=== PATIENT | male | born 1965 | race Caucasian/White ===

== ENCOUNTER 2016-11-27 23:56 | Emergency (ER) | payer OTHER ==
[~2016-11-27] VITALS: Ht 180.3 cm; Wt 95.9 kg
[~2016-11-27 23:56] MED LIST: ADVIL,NUPRIN,M200 MG PO; AMBIEN10 MG PO; AZITHROMYCIN250 MG1 PO; BACLOFEN20 MG PO; CLORAZEPATE DI7.5 MG PO; COLACE100 MG PO; DOXYCYCLINE HY100 M3 PO; Desyrel PO; LITHIUM; LITHIUM CARBON300 M1 PO; LITHIUM CARBON300 MG PO; LYRICA50 MG PO; Lithium Carbonate PO; Medrol Dosepak PO; NAPROSYN500 MG PO; OXYCODONE HCL30 MG PO; OXYCODONE-APAP1 EACH PO; PERCOCET 10/1 TABLET PO; Percocet 5/325,Endoc PO; Proventil,Ventolin H IH; REQUIP0.5 MG PO; REQUIP1 MG PO; Requip PO; SEROQUEL400 MG PO; STRATTERA60 MG PO; TOPAMAX100 MG PO; TOPAMAX200 MG PO; TOPIRAMATE100 MG PO; VALIUM10 MG PO; ZITHROMAX Z-PA250 MG PO; ZOLPIDEM TARTRAT5 MG PO
[2016-11-28 02:54] LABS: EOSINOPHIL (%) 0.5 % (0-5); EOSINOPHIL COUNT 0.1 K/uL (0-0.3); HEMATOCRIT 38.8 % (38.0-50.0); IMMATURE GRANULOCYTE (%) 0.4 % (0.0-0.7); IMMATURE GRANULOCYTE COUNT 0.1 K/uL; LYMPHOCYTE COUNT 1.9 K/uL (1.0-2.8); MCH 25.9 PG (29.0-34.0); MCV 81.2 FL (86-99); MEAN PLAT.VOLUME 10.2 uM^3 (9.0-12.4); MONOCYTE (%) 6.2 % (3-12); MONOCYTE COUNT 0.9 K/uL (0-0.8); NEUTROPHIL (%) 78.9 % (45-76); PLATELET COUNT 217 K/uL (156-360); RBC DIS.WIDTH-CV 18.4 % (11.8-14.6); RED BLOOD COUNT 4.78 M/uL (4.00-5.50); WHITE BLOOD COUNT 13.9 K/uL (4.1-10.2)
[2016-11-28 03:07] LABS: CHLORIDE 107 mEq/L (99-109); SODIUM 143 mEq/L (136-147)
[2016-11-28 03:10] LABS: GLUCOSE 124 mg/dL (70-99)
[2016-11-28 03:11] LABS: ANION GAP 6 MEQ/L (2-14); TOTAL BILIRUBIN 0.3 mg/dL (0.0-1.0)
[2016-11-28 03:12] LABS: SERUM ETHYL ALCOHOL < 10 mg/dL
[2016-11-28 03:13] LABS: ALKALINE PHOSPHATASE 100 IU/L (3-129); GFR ESTIMATE (CALCULATED) > 59 mL/min/
[2016-11-28 03:14] LABS: UREA NITROGEN (BUN) 27 mg/dL (9-23)
[2016-11-28 03:16] LABS: TROP-I INTERPRETATION NEGATIVE; TROPONIN-I < 0.01 ng/mL (0.0-0.30)
[2016-11-28 03:17] LABS: LIPASE 81 U/L (1.0-51.0)
[2016-11-28] MEDS ORDERED: ZOFRAN4 MG PO (05:07)
[2016-11-28 05:24] VITALS: BP 131/80
== END 2016-11-28 05:26 | disposition home or self-care (01) ==
LOC: EME 23:56
PROVIDERS: Emergency Medicine
DX: R10.9 Unspecified abdominal pain (principal); R11.2 Nausea with vomiting, unspecified; R20.2 Paresthesia of skin; R42 Dizziness and giddiness; F31.9 Bipolar disorder, unspecified; F41.9 Anxiety disorder, unspecified; F11.20 Opioid dependence, uncomplicated; F13.20 Sedative, hypnotic or anxiolytic dependence, uncomplicated; F10.10 Alcohol abuse, uncomplicated; F17.200 Nicotine dependence, unspecified, uncomplicated
CPT/HCPCS: 70450; 71010; 74176; 80053; 83690; 84484; 85025; 93005; 99281; 99284; G0480; J2405; J7030

== ENCOUNTER 2016-12-02 02:09 | Inpatient (IN) | payer OTHER ==
[~2016-12-02] VITALS: Ht 180.3 cm; Wt 97.0 kg
[~2016-12-02 02:09] MED LIST changes: +ZOFRAN4 MG PO
[2016-12-02 02:57] LABS: HEMATOCRIT 39.9 % (38.0-50.0); MCH 25.9 PG (29.0-34.0); MCHC 31.8 G/DL (30.0-36.0); MCV 81.4 FL (86-99); MEAN PLAT.VOLUME 10.8 uM^3 (9.0-12.4); PLATELET COUNT 218 K/uL (156-360); RBC DIS.WIDTH-CV 18.6 % (11.8-14.6); RBC DIS.WIDTH-SD 53.8 % (39-53); WHITE BLOOD COUNT 18.2 K/uL (4.1-10.2)
[2016-12-02 02:59] LABS: CHLORIDE 107 mEq/L (99-109); SODIUM 138 mEq/L (136-147)
[2016-12-02 03:00] LABS: GLUCOSE 107 mg/dL (70-99)
[2016-12-02 03:02] LABS: ANION GAP 7 MEQ/L (2-14)
[2016-12-02 03:04] LABS: GFR ESTIMATE (CALCULATED) > 59 mL/min/
[2016-12-02 03:06] LABS: UREA NITROGEN (BUN) 24 mg/dL (9-23)
[2016-12-02 03:07] LABS: SALICYLATE < 5.0 MG/DL (15-30)
[2016-12-02 07:50] VITALS: BP 137/73
[2016-12-02 11:15] VITALS: BP 132/74
[2016-12-02] MEDS ORDERED: LYRICA150 MG PO (12:20)
[2016-12-02] MEDS ORDERED: LITHIUM CARBON300 MG PO (12:23)
[2016-12-02 12:25] LABS: HEMATOCRIT 41.9 % (38.0-50.0); MCH 26.4 PG (29.0-34.0); MCV 82.5 FL (86-99); MEAN PLAT.VOLUME 10.3 uM^3 (9.0-12.4); PLATELET COUNT 195 K/uL (156-360); RBC DIS.WIDTH-SD 54.3 % (39-53); RED BLOOD COUNT 5.08 M/uL (4.00-5.50); WHITE BLOOD COUNT 20.5 K/uL (4.1-10.2)
[2016-12-02] MEDS ORDERED: TOPIRAMATE100 MG PO (12:25)
[2016-12-02 12:51] LABS: ANION GAP 10 MEQ/L (2-14); CHLORIDE 113 MEQ/L (99-109); CREATINE KINASE 781 IU/L (1-294); GFR ESTIMATE (CALCULATED) > 59 mL/min/; GLUCOSE 90 mg/dL (70-99); POTASSIUM 3.7 MEQ/L (3.7-5.4); SAMPLE HEMOLYSIS CHECK 0; SAMPLE ICTERIC CHECK 0; SAMPLE LIPEMIA CHECK 0; SODIUM 144 MEQ/L (136-147); UREA NITROGEN (BUN) 15 mg/dL (9-23)
[2016-12-02 15:48] VITALS: BP 174/81
[2016-12-02 19:54] VITALS: BP 160/74
[2016-12-02 23:59] VITALS: BP 139/76
[2016-12-03 07:43] LABS: MCH 26.2 PG (29.0-34.0); MCHC 31.7 G/DL (30.0-36.0); MCV 82.7 FL (86-99); MEAN PLAT.VOLUME 11.1 uM^3 (9.0-12.4); PLATELET COUNT 202 K/uL (156-360); RBC DIS.WIDTH-CV 18.9 % (11.8-14.6); RED BLOOD COUNT 4.96 M/uL (4.00-5.50); WHITE BLOOD COUNT 12.3 K/uL (4.1-10.2)
[2016-12-03 07:52] LABS: ANION GAP 6 MEQ/L (2-14); CHLORIDE 112 MEQ/L (99-109); GFR ESTIMATE (CALCULATED) > 59 mL/min/; GLUCOSE 88 mg/dL (70-99); POTASSIUM 4.2 MEQ/L (3.7-5.4); SAMPLE HEMOLYSIS CHECK 0; SAMPLE ICTERIC CHECK 0; SAMPLE LIPEMIA CHECK 0; SODIUM 143 MEQ/L (136-147); UREA NITROGEN (BUN) 13 mg/dL (9-23)
[2016-12-03 08:03] LABS: CREATINE KINASE 722 IU/L (1-294)
[2016-12-03] MEDS ORDERED: BACLOFEN20 MG PO ×2 (13:41→13:49)
[2016-12-03] MEDS ORDERED: TYLENOL EXTRA500 MG PO (13:42)
[2016-12-03] MEDS ORDERED: BUSPIRONE HCL10 MG PO (13:43)
[2016-12-03] MEDS ORDERED: SERTRALINE HCL100 MG PO (13:44)
[2016-12-03] MEDS ORDERED: OXCARBAZEPINE600 MG PO (13:45)
[2016-12-03] MEDS ORDERED: NAPROXEN500 MG PO (13:46)
[2016-12-03] MEDS ORDERED: PROAIR HFA8.5 GM IH (13:48)
[2016-12-03] MEDS ORDERED: ADVIL200 MG PO (13:51)
[2016-12-03 23:28] VITALS: BP 154/67
[2016-12-04 05:23] LABS: HEMATOCRIT 40.9 % (38.0-50.0); MCH 25.9 PG (29.0-34.0); MCHC 31.8 G/DL (30.0-36.0); MCV 81.6 FL (86-99); PLATELET COUNT 202 K/uL (156-360); RBC DIS.WIDTH-CV 18.5 % (11.8-14.6); RBC DIS.WIDTH-SD 52.3 % (39-53); RED BLOOD COUNT 5.01 M/uL (4.00-5.50); WHITE BLOOD COUNT 13.4 K/uL (4.1-10.2)
[2016-12-04 05:49] LABS: ANION GAP 10 MEQ/L (2-14); CHLORIDE 108 MEQ/L (99-109); CREATINE KINASE 354 IU/L (1-294); GFR ESTIMATE (CALCULATED) > 59 mL/min/; GLUCOSE 101 mg/dL (70-99); POTASSIUM 3.7 MEQ/L (3.7-5.4); SAMPLE HEMOLYSIS CHECK 0; SAMPLE ICTERIC CHECK 0; SAMPLE LIPEMIA CHECK 0; SODIUM 141 MEQ/L (136-147); UREA NITROGEN (BUN) 10 mg/dL (9-23)
[2016-12-04 08:04] VITALS: BP 127/75
[2016-12-04] MEDS ORDERED: NICOTINE PATCH1 EAC2 TD (16:28)
== END 2016-12-04 16:48 | disposition home or self-care (01) | DRG 917 ==
LOC: EME 02:09 → 5SOUTH 04:56 → EDOF 04:56 → 5SOUTH 06:17
PROVIDERS: Emergency Medicine; Hospitalist; Internal Medicine
DX: T42.8X2A Poisoning by antiparkinsonism drugs and other central muscle-tone depressants, intentional self-harm, initial encounter (principal); R40.20 Unspecified coma; G92 Toxic encephalopathy; R45.851 Suicidal ideations; F33.2 Major depressive disorder, recurrent severe without psychotic features; F05 Delirium due to known physiological condition; E87.2 Acidosis; T42.6X2A Poisoning by other antiepileptic and sedative-hypnotic drugs, intentional self-harm, initial encounter; J44.9 Chronic obstructive pulmonary disease, unspecified; G89.29 Other chronic pain; F10.129 Alcohol abuse with intoxication, unspecified; F17.210 Nicotine dependence, cigarettes, uncomplicated; G47.00 Insomnia, unspecified; R45.89 Other symptoms and signs involving emotional state; R45.1 Restlessness and agitation; E66.9 Obesity, unspecified; Z91.14 Patient's other noncompliance with medication regimen; Z81.8 Family history of other mental and behavioral disorders; Z68.29 Body mass index [BMI] 29.0-29.9, adult; Y92.009 Unspecified place in unspecified non-institutional (private) residence as the place of occurrence of the external cause
CPT/HCPCS: 80048; 80048 91; 82550; 83605; 85027; 93005; 99281; 99285; G0480; J1630; J1650; J2060; J7030

== ENCOUNTER 2017-02-16 17:22 | Emergency (ER) | payer OTHER ==
[~2017-02-16] VITALS: Ht 182.9 cm; Wt 88.8 kg
[~2017-02-16 17:22] MED LIST changes: +ADVIL200 MG PO; +BUSPIRONE HCL10 MG PO; +LYRICA150 MG PO; +NAPROXEN500 MG PO; +NICOTINE PATCH1 EAC2 TD; +OXCARBAZEPINE600 MG PO; +PROAIR HFA8.5 GM IH; +SERTRALINE HCL100 MG PO; +TYLENOL EXTRA500 MG PO
[2017-02-16 18:07] LABS: EOSINOPHIL (%) 1.8 % (0-5); EOSINOPHIL COUNT 0.2 K/uL (0-0.3); HEMATOCRIT 45.7 % (38.0-50.0); IMMATURE GRANULOCYTE (%) 0.2 % (0.0-0.7); INSTRUMENT ABS NEUTROPHIL CT 9.1 K/uL; MCH 27.7 PG (29.0-34.0); MCHC 32.8 G/DL (30.0-36.0); MCV 84.5 FL (86-99); MONOCYTE (%) 7.5 % (3-12); MONOCYTE COUNT 0.9 K/uL (0-0.8); NEUTROPHIL (%) 73.8 % (45-76); NEUTROPHIL COUNT 9.1 K/uL (1.8-6.4); PLATELET COUNT 203 K/uL (156-360); RBC DIS.WIDTH-CV 17.9 % (11.8-14.6); RBC DIS.WIDTH-SD 55.3 % (39-53); RED BLOOD COUNT 5.41 M/uL (4.00-5.50); WHITE BLOOD COUNT 12.3 K/uL (4.1-10.2)
[2017-02-16 18:16] LABS: CHLORIDE 106 mEq/L (99-109); SODIUM 142 mEq/L (136-147)
[2017-02-16 18:18] LABS: GLUCOSE 118 mg/dL (70-99)
[2017-02-16 18:19] LABS: ANION GAP 10 MEQ/L (2-14)
[2017-02-16 18:21] LABS: SERUM ETHYL ALCOHOL < 10 mg/dL
[2017-02-16 18:22] LABS: GFR ESTIMATE (CALCULATED) > 59 mL/min/
[2017-02-16 18:23] LABS: UREA NITROGEN (BUN) 9 mg/dL (9-23)
[2017-02-16 18:25] LABS: SALICYLATE < 5.0 MG/DL (15-30)
[2017-02-16 18:52] LABS: AMPHETAMINE NEGATIVE (500 ng/mL); BARBITURATES NEGATIVE (200 ng/mL); BENZODIAZEPINES NEGATIVE (150 ng/mL); COCAINE NEGATIVE (150 ng/mL); INTERNAL CONTROLS VALID? YES; METHADONE NEGATIVE (200 ng/mL); METHAMPHETAMINE NEGATIVE (500 ng/mL); OPIATES (MORPHINE) NEGATIVE (100 ng/mL); OXYCODONE NEGATIVE (100 ng/mL); PHENCYCLIDINE NEGATIVE (25 ng/mL); PROPOXYPHENE NEGATIVE (300 ng/mL); THC CANNABINOIDS NEGATIVE (50 ng/mL); TRICYCLIC ANTIDEPRESSANTS NEGATIVE (300 ng/mL)
[2017-02-17 05:29] VITALS: BP 113/86
== END 2017-02-17 05:48 | disposition home or self-care (01) ==
LOC: EME 17:22
PROVIDERS: Emergency Medicine
DX: T50.901A Poisoning by unspecified drugs, medicaments and biological substances, accidental (unintentional), initial encounter (principal); F17.200 Nicotine dependence, unspecified, uncomplicated
CPT/HCPCS: 70450; 80048; 83930; 85025; 99281; 99285; G0480; J1630

== ENCOUNTER 2017-02-18 01:53 | Emergency (ER) | payer OTHER ==
[~2017-02-18] VITALS: Ht 182.9 cm; Wt 93.9 kg
[2017-02-18 02:49] LABS: MCH 27.9 PG (29.0-34.0); MCHC 32.7 G/DL (30.0-36.0); MCV 85.4 FL (86-99); MEAN PLAT.VOLUME 11.1 uM^3 (9.0-12.4); PLATELET COUNT 193 K/uL (156-360); RBC DIS.WIDTH-CV 17.6 % (11.8-14.6); RBC DIS.WIDTH-SD 54.9 % (39-53); RED BLOOD COUNT 5.27 M/uL (4.00-5.50); WHITE BLOOD COUNT 13.8 K/uL (4.1-10.2)
[2017-02-18 03:01] LABS: CHLORIDE 107 mEq/L (99-109); SODIUM 141 mEq/L (136-147)
[2017-02-18 03:03] LABS: GLUCOSE 101 mg/dL (70-99)
[2017-02-18 03:04] LABS: ANION GAP 9 MEQ/L (2-14)
[2017-02-18 03:05] LABS: TOTAL BILIRUBIN 0.2 mg/dL (0.0-1.0)
[2017-02-18 03:06] LABS: SERUM ETHYL ALCOHOL < 10 mg/dL
[2017-02-18 03:07] LABS: GFR ESTIMATE (CALCULATED) > 59 mL/min/
[2017-02-18 03:08] LABS: ALKALINE PHOSPHATASE 107 IU/L (3-129)
[2017-02-18 03:09] LABS: UREA NITROGEN (BUN) 14 mg/dL (9-23)
[2017-02-18 03:10] LABS: SALICYLATE < 5.0 MG/DL (15-30)
[2017-02-18 03:12] LABS: LIPASE 107 U/L (1.0-51.0)
[2017-02-18 04:17] LABS: AMPHETAMINE NEGATIVE (500 ng/mL); BARBITURATES NEGATIVE (200 ng/mL); BENZODIAZEPINES NEGATIVE (150 ng/mL); COCAINE NEGATIVE (150 ng/mL); INTERNAL CONTROLS VALID? YES; METHADONE NEGATIVE (200 ng/mL); METHAMPHETAMINE NEGATIVE (500 ng/mL); OPIATES (MORPHINE) NEGATIVE (100 ng/mL); OXYCODONE NEGATIVE (100 ng/mL); PHENCYCLIDINE NEGATIVE (25 ng/mL); PROPOXYPHENE NEGATIVE (300 ng/mL); THC CANNABINOIDS NEGATIVE (50 ng/mL); TRICYCLIC ANTIDEPRESSANTS NEGATIVE (300 ng/mL)
[2017-02-18 06:28] LABS: CREATINE KINASE 403 IU/L (1-294)
[2017-02-18 14:18] VITALS: BP 121/89
== END 2017-02-18 14:18 | disposition home or self-care (01) ==
LOC: EME → EDBD 01:53 → EME 01:53
PROVIDERS: Emergency Medicine
DX: T50.902A Poisoning by unspecified drugs, medicaments and biological substances, intentional self-harm, initial encounter (principal); F19.121 Other psychoactive substance abuse with intoxication delirium; F17.200 Nicotine dependence, unspecified, uncomplicated
CPT/HCPCS: 71010; 80053; 82550; 83690; 85027; 93005; 99281; 99285; G0480; J1630; J2060; J2250; J7030

== ENCOUNTER 2017-02-19 07:02 | Emergency (ER) | payer OTHER ==
[~2017-02-19] VITALS: Ht 175.3 cm; Wt 83.4 kg
[2017-02-19 07:35] LABS: EOSINOPHIL COUNT 0.1 K/uL (0-0.3); IMMATURE GRANULOCYTE (%) 0.2 % (0.0-0.7); INSTRUMENT ABS NEUTROPHIL CT 7.5 K/uL; LYMPHOCYTE COUNT 2.5 K/uL (1.0-2.8); MCH 27.5 PG (29.0-34.0); MCHC 32.2 G/DL (30.0-36.0); MCV 85.3 FL (86-99); MEAN PLAT.VOLUME 10.3 uM^3 (9.0-12.4); MONOCYTE (%) 8.2 % (3-12); MONOCYTE COUNT 0.9 K/uL (0-0.8); NEUTROPHIL (%) 67.8 % (45-76); NEUTROPHIL COUNT 7.5 K/uL (1.8-6.4); PLATELET COUNT 188 K/uL (156-360); RBC DIS.WIDTH-CV 18.4 % (11.8-14.6); RBC DIS.WIDTH-SD 55.4 % (39-53); RED BLOOD COUNT 5.86 M/uL (4.00-5.50); WHITE BLOOD COUNT 11.1 K/uL (4.1-10.2)
[2017-02-19 08:12] LABS: ANION GAP 11 MEQ/L (2-14); CHLORIDE 111 MEQ/L (99-109); DIRECT BILIRUBIN 0.1 mg/dL (0.0-0.3); SAMPLE HEMOLYSIS CHECK 0; SAMPLE ICTERIC CHECK 0; SAMPLE LIPEMIA CHECK 0; SODIUM 147 MEQ/L (136-147); TOTAL BILIRUBIN 0.6 MG/DL (0.0-1.0)
[2017-02-19 08:21] LABS: ALKALINE PHOSPHATASE 108 IU/L (3-129); GFR ESTIMATE (CALCULATED) > 59 mL/min/; GLUCOSE 119 mg/dL (70-99); SALICYLATE < 3.0 MG/DL (15-30); SERUM ETHYL ALCOHOL < 10 mg/dL; UREA NITROGEN (BUN) 17 mg/dL (9-23)
[2017-02-19 08:22] LABS: TROP-I INTERPRETATION NEGATIVE; TROPONIN-I < 0.01 ng/mL (0.0-0.30)
[2017-02-19 10:38] VITALS: BP 118/63
== END 2017-02-19 16:09 | disposition home or self-care (01) ==
LOC: EME → EDBD 07:02 → EME 07:02
PROVIDERS: Emergency Medicine
DX: F10.129 Alcohol abuse with intoxication, unspecified (principal); R41.82 Altered mental status, unspecified; F17.200 Nicotine dependence, unspecified, uncomplicated; Z86.718 Personal history of other venous thrombosis and embolism
CPT/HCPCS: 70450; 80048; 80076; 81003; 84484; 85025; 93005; 99281; 99285; G0480; J1630; J2250

== ENCOUNTER 2017-02-20 13:32 | Emergency (ER) | payer OTHER ==
[~2017-02-20] VITALS: Ht 172.7 cm; Wt 86.5 kg
[2017-02-20 15:12] LABS: EOSINOPHIL (%) 0.6 % (0-5); EOSINOPHIL COUNT 0.1 K/uL (0-0.3); HEMATOCRIT 43.8 % (38.0-50.0); IMMATURE GRANULOCYTE (%) 0.4 % (0.0-0.7); IMMATURE GRANULOCYTE COUNT 0.1 K/uL; INSTRUMENT ABS NEUTROPHIL CT 10.3 K/uL; LYMPHOCYTE COUNT 1.8 K/uL (1.0-2.8); MCH 27.5 PG (29.0-34.0); MCHC 32.4 G/DL (30.0-36.0); MCV 84.7 FL (86-99); MEAN PLAT.VOLUME 10.4 uM^3 (9.0-12.4); MONOCYTE (%) 8.9 % (3-12); MONOCYTE COUNT 1.2 K/uL (0-0.8); NEUTROPHIL (%) 76.5 % (45-76); NEUTROPHIL COUNT 10.3 K/uL (1.8-6.4); PLATELET COUNT 179 K/uL (156-360); RBC DIS.WIDTH-CV 17.2 % (11.8-14.6); RBC DIS.WIDTH-SD 53.8 % (39-53); RED BLOOD COUNT 5.17 M/uL (4.00-5.50); WHITE BLOOD COUNT 13.4 K/uL (4.1-10.2)
[2017-02-20 15:20] LABS: CHLORIDE 108 mEq/L (99-109)
[2017-02-20 15:21] LABS: POTASSIUM 3.7 mEq/L (3.7-5.4); SODIUM 143 mEq/L (136-147)
[2017-02-20 15:22] LABS: GLUCOSE 94 mg/dL (70-99)
[2017-02-20 15:24] LABS: ANION GAP 14 MEQ/L (2-14)
[2017-02-20 15:25] LABS: SERUM ETHYL ALCOHOL < 10 mg/dL
[2017-02-20 15:26] LABS: GFR ESTIMATE (CALCULATED) > 59 mL/min/
[2017-02-20 15:27] LABS: UREA NITROGEN (BUN) 23 mg/dL (9-23)
[2017-02-20 19:21] LABS: ADD MIUA? YES; BILIRUBIN NEGATIVE; BLOOD MODERATE; COLOR YELLOW ((YELLOW)); GLUCOSE (STRIP) NEGATIVE; KETONES 20; LEUKOCYTES NEGATIVE; NITRITE NEGATIVE; PROTEIN (STRIP) 30; SPECIFIC GRAVITY 1.025 (1.000-1.030)
[2017-02-20 19:36] LABS: ADD MEDTOX COMMENT Y; AMPHETAMINE NEGATIVE (500 ng/mL); BARBITURATES NEGATIVE (200 ng/mL); BENZODIAZEPINES PRESUMPTIVE POSITIVE (150 ng/mL); COCAINE NEGATIVE (150 ng/mL); INTERNAL CONTROLS VALID? YES; METHADONE NEGATIVE (200 ng/mL); METHAMPHETAMINE NEGATIVE (500 ng/mL); OPIATES (MORPHINE) NEGATIVE (100 ng/mL); OXYCODONE NEGATIVE (100 ng/mL); PHENCYCLIDINE NEGATIVE (25 ng/mL); PROPOXYPHENE NEGATIVE (300 ng/mL); THC CANNABINOIDS NEGATIVE (50 ng/mL); TRICYCLIC ANTIDEPRESSANTS NEGATIVE (300 ng/mL)
[2017-02-20 19:38] LABS: BACTERIA NONE SEEN /HPF; EPITHELIAL CELLS RARE /HPF; MUCUS TRACE /LPF; RED BLOOD CELLS 15-20 /HPF (0-5); WHITE BLOOD CELLS 0-5 /HPF (0-5)
[2017-02-20 20:02] LABS: BENZODIAZEPINES, URINE SCREEN POSITIVE (200 ng/mL)
[2017-02-21 04:48] VITALS: BP 126/71
[2017-02-22] MEDS ORDERED: LYRICA150 MG PO ×2 (01:21→01:22)
[2017-02-22] MEDS ORDERED: KLONOPIN1 MG PO (01:23)
[2017-02-22] MEDS ORDERED: BACLOFEN20 MG PO (01:25)
== END 2017-02-21 04:50 | disposition home or self-care (01) ==
LOC: EME 13:32
PROVIDERS: Emergency Medicine
DX: T40.7X1A Poisoning by cannabis (derivatives), accidental (unintentional), initial encounter (principal); F12.10 Cannabis abuse, uncomplicated; Z91.19 Patient's noncompliance with other medical treatment and regimen; F17.200 Nicotine dependence, unspecified, uncomplicated
CPT/HCPCS: 70450; 80048; 81003; 84999; 85025; 90839; 99281; 99285; G0480

== ENCOUNTER 2017-02-21 16:17 | Inpatient (IN) | payer OTHER ==
[~2017-02-21] VITALS: Ht 180.3 cm; Wt 90.8 kg
[2017-02-21 17:44] LABS: BASOPHIL COUNT 0.1 K/uL (0-0.1); EOSINOPHIL (%) 1.9 % (0-5); EOSINOPHIL COUNT 0.2 K/uL (0-0.3); HEMATOCRIT 41.9 % (38.0-50.0); IMMATURE GRANULOCYTE (%) 0.6 % (0.0-0.7); IMMATURE GRANULOCYTE COUNT 0.1 K/uL; INSTRUMENT ABS NEUTROPHIL CT 7.4 K/uL; LYMPHOCYTE COUNT 2.9 K/uL (1.0-2.8); MCH 27.7 PG (29.0-34.0); MCHC 33.2 G/DL (30.0-36.0); MCV 83.6 FL (86-99); MEAN PLAT.VOLUME 10.9 uM^3 (9.0-12.4); MONOCYTE (%) 8.9 % (3-12); MONOCYTE COUNT 1.1 K/uL (0-0.8); NEUTROPHIL (%) 63.1 % (45-76); NEUTROPHIL COUNT 7.4 K/uL (1.8-6.4); PLATELET COUNT 189 K/uL (156-360); RBC DIS.WIDTH-CV 16.9 % (11.8-14.6); RBC DIS.WIDTH-SD 51.6 % (39-53); RED BLOOD COUNT 5.01 M/uL (4.00-5.50); WHITE BLOOD COUNT 11.7 K/uL (4.1-10.2)
[2017-02-21 17:51] LABS: CHLORIDE 107 mEq/L (99-109); POTASSIUM 3.5 mEq/L (3.7-5.4); SODIUM 140 mEq/L (136-147)
[2017-02-21 17:53] LABS: GLUCOSE 104 mg/dL (70-99)
[2017-02-21 17:54] LABS: ANION GAP 12 MEQ/L (2-14)
[2017-02-21 17:56] LABS: GFR ESTIMATE (CALCULATED) > 59 mL/min/; SERUM ETHYL ALCOHOL < 10 mg/dL
[2017-02-21 17:57] LABS: UREA NITROGEN (BUN) 18 mg/dL (9-23)
[2017-02-21 19:38] LABS: ADD MIUA? NO; BILIRUBIN NEGATIVE; BLOOD NEGATIVE; COLOR YELLOW ((YELLOW)); GLUCOSE (STRIP) NEGATIVE; KETONES NEGATIVE; LEUKOCYTES NEGATIVE; NITRITE NEGATIVE; PROTEIN (STRIP) NEGATIVE; SPECIFIC GRAVITY 1.012 (1.000-1.030); UROBILINOGEN 0.2 MG/DL (0.2-1.0)
[2017-02-21 20:03] LABS: AMPHETAMINE NEGATIVE (500 ng/mL); BARBITURATES NEGATIVE (200 ng/mL); BENZODIAZEPINES NEGATIVE (150 ng/mL); COCAINE NEGATIVE (150 ng/mL); INTERNAL CONTROLS VALID? YES; METHADONE NEGATIVE (200 ng/mL); METHAMPHETAMINE NEGATIVE (500 ng/mL); OPIATES (MORPHINE) NEGATIVE (100 ng/mL); OXYCODONE NEGATIVE (100 ng/mL); PHENCYCLIDINE NEGATIVE (25 ng/mL); PROPOXYPHENE NEGATIVE (300 ng/mL); THC CANNABINOIDS NEGATIVE (50 ng/mL); TRICYCLIC ANTIDEPRESSANTS NEGATIVE (300 ng/mL)
[2017-02-22 00:01] VITALS: BP 121/74
[2017-02-22] MEDS ORDERED: LYRICA150 MG PO ×2 (01:21→01:22)
[2017-02-22] MEDS ORDERED: KLONOPIN1 MG PO (01:23)
[2017-02-22] MEDS ORDERED: BACLOFEN20 MG PO (01:25)
[2017-02-22 07:48] VITALS: BP 100/59
[2017-02-22 15:23] VITALS: BP 111/77
[2017-02-23 07:48] VITALS: BP 116/71
[2017-02-23] MEDS ORDERED: OXCARBAZEPINE300 MG PO (09:23)
[2017-02-23] MEDS ORDERED: LYRICA75 MG PO (09:23)
== END 2017-02-23 12:43 | disposition home or self-care (01) | DRG 885 ==
LOC: EME 16:17 → EDOF 19:28 → 1WEST 19:28 → ENRESERV 23:27 → 1WEST 23:50
PROVIDERS: Emergency Medicine
DX: F31.81 Bipolar II disorder (principal); F17.200 Nicotine dependence, unspecified, uncomplicated; F41.1 Generalized anxiety disorder; G89.29 Other chronic pain; J44.9 Chronic obstructive pulmonary disease, unspecified; F14.10 Cocaine abuse, uncomplicated; F12.10 Cannabis abuse, uncomplicated; F11.10 Opioid abuse, uncomplicated; F10.10 Alcohol abuse, uncomplicated; Z91.5 Personal history of self-harm
CPT/HCPCS: 80048; 81003; 85025; 90839; 99281; 99285; G0480

== ENCOUNTER 2017-11-03 13:29 | Emergency (ER) | payer OTHER ==
[~2017-11-03] VITALS: Ht 180.3 cm; Wt 92.3 kg
[~2017-11-03 13:29] MED LIST changes: +KLONOPIN1 MG PO; +LYRICA75 MG PO; +OXCARBAZEPINE300 MG PO
[2017-11-03 13:56] LABS: HEMATOCRIT 44.1 % (38.0-50.0); HEMOGLOBIN 15.1 G/DL (12.5-16.6); MCH 30.5 PG (29.0-34.0); MCHC 34.2 G/DL (30.0-36.0); MCV 89.1 FL (86-99); PLATELET COUNT 160 K/uL (156-360); RBC DIS.WIDTH-CV 15.3 % (11.8-14.6); RBC DIS.WIDTH-SD 49.8 % (39-53); RED BLOOD COUNT 4.95 M/uL (4.00-5.50); WHITE BLOOD COUNT 10.5 K/uL (4.1-10.2)
[2017-11-03 14:08] LABS: CHLORIDE 108 mEq/L (99-109); POTASSIUM 3.8 mEq/L (3.7-5.4); SODIUM 143 mEq/L (136-147)
[2017-11-03 14:10] LABS: GLUCOSE 114 mg/dL (70-99)
[2017-11-03 14:14] LABS: CREATININE 0.8 mg/dL (0.6-1.3); GFR ESTIMATE (CALCULATED) > 59 mL/min/ (58.99-99999)
[2017-11-03 14:15] LABS: UREA NITROGEN (BUN) 10 mg/dL (9-23)
[2017-11-03] MEDS ORDERED: PREDNISONE20 MG PO (16:25)
[2017-11-03] MEDS ORDERED: ZITHROMAX250 MG PO (16:31)
[2017-11-03 16:37] VITALS: BP 113/85
== END 2017-11-03 16:38 | disposition home or self-care (01) ==
LOC: EME 13:29
PROVIDERS: Emergency Medicine
DX: J18.9 Pneumonia, unspecified organism (principal); J44.0 Chronic obstructive pulmonary disease with (acute) lower respiratory infection; J44.1 Chronic obstructive pulmonary disease with (acute) exacerbation; F41.9 Anxiety disorder, unspecified; F17.210 Nicotine dependence, cigarettes, uncomplicated
CPT/HCPCS: 71046; 80048; 85027; 87502; 94640; 99281; 99285; J7030; J7512

== ENCOUNTER 2017-12-02 01:06 | Inpatient (IN) | payer OTHER ==
[~2017-12-02] VITALS: Ht 180.3 cm; Wt 95.6 kg
[~2017-12-02 01:06] MED LIST changes: +BUSPAR15 MG PO; -BUSPIRONE HCL10 MG PO; +PREDNISONE20 MG PO; +SEROQUEL200 MG PO; -SEROQUEL400 MG PO; -SERTRALINE HCL100 MG PO; +ZITHROMAX250 MG PO; +ZOLOFT50 MG PO
[2017-12-02 01:57] LABS: HEMATOCRIT 45.8 % (38.0-50.0); HEMOGLOBIN 15.3 G/DL (12.5-16.6); MCH 30.6 PG (29.0-34.0); MCHC 33.4 G/DL (30.0-36.0); MCV 91.6 FL (86-99); PLATELET COUNT 206 K/uL (156-360); RBC DIS.WIDTH-CV 15.3 % (11.8-14.6); RBC DIS.WIDTH-SD 51.1 % (39-53); WHITE BLOOD COUNT 26.7 K/uL (4.1-10.2)
[2017-12-02 02:13] LABS: AMPHETAMINE NEGATIVE (500 ng/mL); BARBITURATES NEGATIVE (200 ng/mL); BENZODIAZEPINES NEGATIVE (150 ng/mL); BUPRENORPHINE NEGATIVE (10 ng/mL); COCAINE NEGATIVE (150 ng/mL); METHADONE NEGATIVE (200 ng/mL); METHAMPHETAMINE NEGATIVE (500 ng/mL); OPIATES (MORPHINE) NEGATIVE (100 ng/mL); OXYCODONE NEGATIVE (100 ng/mL); PHENCYCLIDINE NEGATIVE (25 ng/mL); PROPOXYPHENE NEGATIVE (300 ng/mL); THC CANNABINOIDS NEGATIVE (50 ng/mL); TRICYCLIC ANTIDEPRESSANTS NEGATIVE (300 ng/mL)
[2017-12-02 02:40] LABS: ALBUMIN 4.1 g/dL (3.2-4.8); CHLORIDE 102 mEq/L (99-109); POTASSIUM 5.4 mEq/L (3.7-5.4); SODIUM 141 mEq/L (136-147)
[2017-12-02 02:42] LABS: GLUCOSE 101 mg/dL (70-99); TOTAL PROTEIN 6.5 g/dL (6.4-8.3)
[2017-12-02 02:44] LABS: TOTAL BILIRUBIN 0.2 mg/dL (0.0-1.0)
[2017-12-02 02:45] LABS: SERUM ETHYL ALCOHOL < 10 mg/dL
[2017-12-02 02:46] LABS: ALKALINE PHOSPHATASE 112 IU/L (3-129); GFR ESTIMATE (CALCULATED) > 59 mL/min/ (58.99-99999)
[2017-12-02 02:47] LABS: AST (GOT) 24 IU/L (2-34); UREA NITROGEN (BUN) 12 mg/dL (9-23)
[2017-12-02 02:49] LABS: ALT (GPT) 13 IU/L (3-49)
[2017-12-02 03:04] LABS: APPEARANCE SL.HAZY ((CLEAR)); BILIRUBIN NEGATIVE; BLOOD MODERATE; COLOR YELLOW ((YELLOW)); GLUCOSE (STRIP) NEGATIVE; KETONES NEGATIVE; LEUKOCYTES NEGATIVE; NITRITE NEGATIVE; PROTEIN (STRIP) NEGATIVE; SPECIFIC GRAVITY 1.016 (1.000-1.030); UROBILINOGEN 0.2 MG/DL (0.2-1.0)
[2017-12-02 03:16] LABS: BACTERIA RARE /HPF; EPITHELIAL CELLS RARE /HPF; MUCUS TRACE /LPF; RED BLOOD CELLS TNTC /HPF (0-5); UCUL ADDED? YES; WHITE BLOOD CELLS 0-5 /HPF (0-5)
[2017-12-02 03:35] LABS: C DIFF TOXIN NEGATIVE (NEGATIVE)
[2017-12-02] MEDS ORDERED: PROVENTIL HFA6.7 GM IH (06:13)
[2017-12-02 12:20] LABS: BASOPHIL (%) 0.3 % (0-1); BASOPHIL COUNT 0.1 K/uL (0-0.1); EOSINOPHIL (%) 0.1 % (0-5); HEMATOCRIT 45.6 % (38.0-50.0); HEMOGLOBIN 15.3 G/DL (12.5-16.6); IMMATURE GRANULOCYTE (%) 0.5 % (0.0-0.7); LYMPHOCYTE (%) 16.5 % (15-42); LYMPHOCYTE COUNT 3.2 K/uL (1.0-2.8); MCH 30.4 PG (29.0-34.0); MCHC 33.6 G/DL (30.0-36.0); MCV 90.5 FL (86-99); MONOCYTE (%) 9.9 % (3-12); MONOCYTE COUNT 1.9 K/uL (0-0.8); NEUTROPHIL (%) 72.7 % (45-76); PLATELET COUNT 180 K/uL (156-360); RBC DIS.WIDTH-CV 15.2 % (11.8-14.6); RBC DIS.WIDTH-SD 50.6 % (39-53); RED BLOOD COUNT 5.04 M/uL (4.00-5.50); WHITE BLOOD COUNT 19.2 K/uL (4.1-10.2)
[2017-12-02] MEDS ORDERED: TRILEPTAL600 MG PO (12:40)
[2017-12-02] MEDS ORDERED: LIORESAL10 MG PO (12:42)
[2017-12-02] MEDS ORDERED: LYRICA300 MG PO (12:46)
[2017-12-02 13:58] VITALS: BP 108/83
== END 2017-12-02 13:45 | disposition left against medical advice (07) | DRG 194 ==
LOC: EME 01:06 → ENRESERV 12:09 → EDOF 12:13 → ENRESERV 13:03 → EDOF 13:45
PROVIDERS: Emergency Medicine
DX: J18.9 Pneumonia, unspecified organism (principal); J44.0 Chronic obstructive pulmonary disease with (acute) lower respiratory infection; J44.1 Chronic obstructive pulmonary disease with (acute) exacerbation; E87.5 Hyperkalemia; F17.210 Nicotine dependence, cigarettes, uncomplicated; R45.851 Suicidal ideations; R09.02 Hypoxemia; N20.0 Calculus of kidney; N21.0 Calculus in bladder; F31.9 Bipolar disorder, unspecified; Z91.5 Personal history of self-harm; I95.9 Hypotension, unspecified
CPT/HCPCS: 71045; 74177; 80053; 81003; 83605; 85025; 85027; 87040; 87070; 87086; 87205; 87449; 87493; 90837; 94640; 94640 76; 99281; 99285; G0480; J0456; J0696; J2060; J7030